=== PATIENT | female | born 1995 | race Two or more races ===

== ENCOUNTER 2024-09-28 03:18 | Emergency (ER) | payer MEDICAID, SELFPAY ==
[2024-09-28] VITALS (7 sets, daily range): BP systolic 112–146; BP diastolic 73–96; PULSE 70–100; RESP 17–18; TEMP 36.3–37.1; O2SAT 97–100; BMI 30.1
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
--- NOTE | 2024-09-28 04:00 | PC.LAC ---
Patient brought in by [employer] for suicidal behavior. per ppd family stated pt was banging head and throwing stuff and not acting herself throughout the day PD stated patient recently broke up with
--- NOTE | 2024-09-28 04:10 | PC.NURSE ---
attempted to do my assessment patient refusing to answer questions
[2024-09-28] MEDS: HALOPERIDOL LACT INJ 5 MG/ML VIAL IM (04:12)
[2024-09-28] MEDS: LORazepam 2 MG/ML VIAL IM (04:12)
[2024-09-28 05:44] LABS: Basophils % (Auto) 0 % (0-2.5); Eosinophils % (Auto) 0 % (0-10); Hemoglobin 13.1 g/dL (12.0-16.0); Immature Granulocytes % (Auto) 0 % (0-0); Immature Granulocytes Auto 0.02 Thou/mm3 (0.00-0.00); Lymphocytes # (Auto) 0.8 Thou/mm3 (1.0-4.8); Lymphocytes % (Auto) 12 % (10-50); Mean Corpuscular HGB Conc 35.4 g/dl (31.0-37.0); Mean Corpuscular Hemoglobin 28.2 pg (25.0-35.0); Mean Corpuscular Volume 80 fL (80-100); Monocytes # (Auto) 0.4 Thou/mm3 (0.0-0.8); Monocytes % (Auto) 6 % (0-12); Neutrophils # (Auto) 5.6 Thou/mm3 (1.8-7.7); Neutrophils % (Auto) 81 % (37-80); Nucleated Red Blood Cell % 0 /100 WBC (0); Platelet Count 273 Thou/mm3 (140-440); RDW Standard Deviation 38.6 fL (36.4-46.3); Red Blood Count 4.65 Miln/mm3 (4.00-5.20); White Blood Count 6.9 Thou/mm3 (3.6-11.0)
--- NOTE | 2024-09-28 06:23 | EDNOTE_ITS ---
Emergency Room Addendum <Bertha Juarez - Last Filed: 09/28/24 16:50> Addendum Narrative: 0600: Care assumed from Dr. Wilson, the previous shift emergency physician. Past medical, surgical, social and family history reviewed. Vitals and home medications reviewed. I will assume the care of the patient at this time, pending mental health evaluation. Please refer to the emergency department record for history and examination from initial visit.? The patient was placed in ED observation care at 09/28/2024 at 0600 hours. The patient was placed in ED observation care pending mental health evaluation. Then, mental health placed her on 5150 hold at 1023 hours and now on observation care because of undifferentiated decompensated behavioral health evaluation, no behavioral health bed available. The patients past medical history, social history, and family history were reviewed. The plan of care will include serial examinations. While in ED observation the patient will have access to water, food, and personal hygiene. If the patient takes home medication(s), they will be continued in ED observation. 0725: Patient is medically cleared for psychiatric evaluation. Physical exam by me shows patient under no acute distress at this time. 1023: Mental health placed the patient on a 5150 hold, pending placement. 1308: Patient has been accepted to [facility]. ETA is 1530. 1644: EMS here to pick the patient and transport to [facility]. ED observation care ended at 09/28/2024 at 1644 hours. Patient was evaluated by mental health and decided to take the patient to psych facility Final diagnosis Acute psychosis Bipolar disorder Anxiety Suicidal ideation Plan Patient is medically clear and she is stable to go to the psych facility <Henrik Ahmadi MD - Last Filed: 09/28/24 16:06> Addendum Narrative: 0600: Care assumed from Dr. Wilson, the previous shift emergency physician. Past medical, surgical, social and family history reviewed. Vitals and home medications reviewed. I will assume the care of the patient at this time, pending mental health evaluation. Please refer to the emergency department record for history and examination from initial visit.? The patient was placed in ED observation care at 09/28/2024 at 0600 hours. The patient was placed in ED observation care pending mental health evaluation. Then, mental health placed her on 5150 hold at 1023 hours and now on observation care because of undifferentiated decompensated behavioral health evaluation, no behavioral health bed available. The patients past medical history, social history, and family history were reviewed. The plan of care will include serial examinations. While in ED observation the patient will have access to water, food, and personal hygiene. If the patient takes home medication(s), they will be continued in ED observation. 0725: Patient is medically cleared for psychiatric evaluation. Physical exam by me shows patient under no acute distress at this time. 1023: [facility] placed the patient on a 5150 hold, pending placement. 1308: Patient has been accepted to [facility]. ETA is 1530. 1530: EMS here to pick the patient and transport to [facility]. ED observation care ended at 09/28/2024 at 1530 hours. Patient was evaluated by mental health and decided to take the patient to psych facility Final diagnosis Acute psychosis Bipolar disorder Anxiety Suicidal ideation Plan Patient is medically clear and she is stable to go to the psych facility
[2024-09-28 06:40] LABS: Acetaminophen < 2.0 mcg/mL (10.0-20.0); Alanine Aminotransferase 22 U/L (10-49); Albumin, Serum 4.6 gm/dL (3.5-5.0); Albumin/Globulin Ratio 1.8 (1.2-2.2); Alcohol, Blood Medical < 3.0 mg/dL (0-10.0); Alkaline Phosphatase 87 U/L (46-116); Anion Gap 8 (7-16); Aspartate Amino Transferase 15 U/L (0-34); BUN/Creatinine Ratio 15 Ratio (12-20); Bilirubin,Total 0.7 mg/dL (0.3-1.2); Blood Urea Nitrogen 12 mg/dL (9-23); Calcium 9.1 mg/dL (8.3-10.6); Calcium (Corrected) 9.1 mg/dL (8.5-10.1); Carbon Dioxide 24.1 mMol/L (20.0-31.0); Chloride 107 mMol/L (98-107); Creatinine (Component) 0.8 mg/dL (0.6-1.3); Estimated Creatinine Clearance 100.2 mL/min (>60); Globulin 2.6 gm/dL (2.3-3.5); Glucose 102 mg/dL (74-106); Osmolality,Calculated 277 (275-295); Potassium 3.4 mMol/L (3.4-5.1); Salicylate < 3.0 mg/dL; Sodium 139 mMol/L (136-145); Total Protein 7.2 gm/dL (5.7-8.2); eGFR > 60 See Note
--- NOTE | 2024-09-28 07:15 | PC.NURSE ---
pt is resting quietly at this time without any complaints. 1-1 sitter at bedside. plan of care ongoing.
--- NOTE | 2024-09-28 08:45 | PC.NURSE ---
attempted to collect urine sample, pt is drowsy and difficult to arouse at this time.
--- NOTE | 2024-09-28 09:52 | PC.SS ---
DAVINA Sinclair met with the patient to re-evaluate current hold. Patient was brought in on 1 5149 hold for danger to self by [place] [employer] as the patient was stated to be banging her head and goode at home. Hold start time 025 by Office Ayala Cage #[id number]. During encounter with patient she was informed of my role and reason for contact. Informed patient of limits of confidentiality. The patient appeared to be restless, presenting with flat affect and provided little to no eye contact. The patient additionally provided minimal information for this assessment. The patient could not tell where she was currently or what brought her in to the Emergency Department when asked multiple times. When asked if her spouse Gerardo and family could be contacted for collateral information, the patient nodded her head. Collateral contact with patient's spouse, Gerardo Smith . In speaking with Gerardo he informs that he is unsure what events led to the patient coming into the ED this morning as he dropped the patient off with her parents yesterday before going to work. Per Gerardo, the couple is going through a divorce at this time. He informs the patient also recently had a miscarriage about two months ago and has been stressed with going to college. Per Gerardo, he informs the patient has been formally diagnosed with Bipolar Disorder and has been taking the following medications: Trazadone and Seroquel. Per Gerardo, patient follows psychiatry at [facility] in [facility] and is seen for primary care by Provider: Emily at [facility] in [place]. Gerardo informs the patient does not follow with therapeutic services at this time. Gerardo informs the patient and he, share a one year old child who is watched by a family friend at this time. In addition, Gerardo reports that he believes the patient was presenting in a 'manic episode'. Per Gerardo, he is not aware of the events that led to the patient coming in on a hold early this morning and is unsure if the patient is complaint with medication intake as he is 'at work' most of the day. David denies the patient to utilize and substances. Additionally, toxicology report is negative. Patient was also unable to engaged in [place] Scale screening due to her current mental status. Per Gerardo, he would not feel a safety plan would be appropriate at this time. Collateral contact with patient's mother Rolanda and step father, Ko Mayberry . In speaking to both parties, they report that patient was at their home all day yesterday. Per mother, the patient was agitated yesterday and was not communicating with them what was going on, speaking little to nothing, becoming non-verbal, therefore she reports that [facility] team was contacted for further assessment. Patient's mother reports that the patient continued to be agitated the rest of the day, cussing at everyone in the home, braking things, throwing things off the goode and not listening to anyone or allowed anyone to prompt her. Per mother, [facility] team responded to the home twice and was instructed to contact law enforcement if the patient's behaviors worsened. During supervisor properties today, the mother and step father report, the behaviors escalated significantly and they called [employer] to further asses as patient had been banging her head on the goode and tables. Per patient's mother and step father, the patient has been stressed recently with dealing with a divorce from spouse Gerardo, a recent miscarriage and the financial burden of going to school. Mother reports that she believes, the patient is triggered by her as they report that Gerardo is not a good support to her and tells the patient mean things. Per family, they are unsure if the patient has been complaint with medication intake. Family reports that the patient has been staying with them throughout the day when spouse goes to work and has to be directed with caring for self, feeding and continuously prompted to help care for herself. Per both parents, they would like patient to get immediate help and are aware patient has already failed two safety plans with community crisis team, therefore understand if patient needs to continue with current hold status. After clinical consultation with [employer] the decision was made that the patient is meeting criteria to continue on 5150 hold for danger to self with addition of presenting as Gravely Disabled. Addendum to be created and added to current 5150 hold with updated information. ED attending Dr. Stark and bed side RN Merle, patient and family were updated on discharge disposition plan. ASW to send packet, patient is now pending LPS placement at this time.
--- NOTE | 2024-09-28 12:00 | PC.NURSE ---
PT GIVEN SANDWICH AND FLUIDS.
--- NOTE | 2024-09-28 12:12 | PC.SS ---
Addendum entered by ROGER Wilburn 09/28/24 14:00: Notified patient's family and spouse Gerardo to notify that the patient was accepted at [facility]. Addendum entered by ROGER Wilburn 09/28/24 13:50: [facility] provided acceptance by Provider: Rain Priest. Unit [address]. Original Note: SS follow up: ASW followed up with the following [facility] facilities. [facility]- no beds available at this time [facility]- referral [facility]- no answer, unable to leave voicemail
--- NOTE | 2024-09-28 13:09 | PC.NURSE ---
Pt accepted to [facility] to unit D. Nurse to nurse report to be called after 1430 to [phone]. Pt can arrive after 1600. ostrich farm worker notified.
== END 2024-09-28 16:30 ==
PROVIDERS: Emergency Provider Emergency Medicine; PCP Internal Medicine
DX: R45.851 Suicidal ideations (principal); F23 Brief psychotic disorder; F31.9 Bipolar disorder, unspecified; F41.9 Anxiety disorder, unspecified; Z75.1 Person awaiting admission to adequate facility elsewhere
CPT/HCPCS: 36415; 80053; 80307; 80320; 80329; 81025; 85025; 96372; 99285; J1630; J2060; G0480